=== PATIENT | male | born 1950 | race Caucasian/White ===

== ENCOUNTER → 2018-05-12 | Outpatient (CLI) | payer MEDICARE, OTHER ==
[~2018-05-12] MED LIST: ASPI81EC PO; HYDACE5 PO; IBUP800 PO; OLME20 PO; OMEP20ER PO
[2018-05-12 20:23] LABS: Bacteria Rare /hpf; Mucus Light (0-Heavy); Squamous Epithelial Cells Not Seen /hpf (Few); White Blood Cells, Urine Rare /hpf (0-5)
== END | disposition home or self-care (01) ==
LOC: LAB SHORT 09:45 → LAB EV 09:45
PROVIDERS: Physician Assistant Medical
DX: R30.0 Dysuria (principal)
CPT/HCPCS: 81015

== ENCOUNTER 2020-12-25 08:36 | Observation (INO) | payer MEDICARE, OTHER ==
[~2020-12-25] VITALS: Ht 182.9 cm; Wt 100.0 kg
[2020-12-25] MEDS ORDERED: FARXIGA10 MG PO (09:05)
[2020-12-25] MEDS ORDERED: ELIQUIS5 M2 PO (09:05)
[2020-12-25] MEDS ORDERED: FLONASE ALLERG9.9 M2 NS (09:06)
[2020-12-25] MEDS ORDERED: Norco 10-325 T1 EACH PO (09:06)
[2020-12-25] MEDS ORDERED: ENTRESTO 24 MG1 EACH PO (09:06)
[2020-12-25] MEDS ORDERED: SILD50TA PO (09:08)
[2020-12-25] MEDS ORDERED: ROSU5 PO (09:08)
[2020-12-25] MEDS ORDERED: METO50ER PO (09:08)
[2020-12-25] MEDS ORDERED: SPIR25 PO (09:09)
--- NOTE | 2020-12-25 12:06 | NUR ---
Received telephone report from the heart center at this time.
--- NOTE | 2020-12-25 16:22 | NUR ---
PT appears unhappy after talking with the can closing machine tender about the possiblity of a pacemaker surgery tomorrow. I asked if he had any specific concerns about the surgery, and he said he doesn't have an answer, but that he does have concerns. He states that it "just sucks" and that he is angry at himself. STates he doesn't know what he did to make this happen to his heart. States he doesn't have a choice, it's either or have the pacemaker if it is needed. Heparin gtt was started after verification with Kristin Colindres RN. Infusing via R arm IV.
--- NOTE | 2020-12-25 17:37 | NUR ---
Pt continues to deny any syptomps. Blood pressure noted lower at last check. He is sitting up in bed, eating dinner at this time. Idioventricular rhythm continues, rate averaging 40 bpm.
--- NOTE | 2020-12-25 18:47 | NUR ---
ALERTED that pt's heart rate was in 20s, 31 bpm when I looked at the monitor. Pt is sitting up in bed, denies any symptoms. Blood pressure 90/47 at this time. Pt states that his blood pressure was systolic 80s all summer.
--- NOTE | 2020-12-26 01:22 | NUR ---
[facility] CALLED TO NOTIFY OF CRITICAL PTT >139. CALL PLACED TO PHARMACY. LYUBOV FROM PHARMACY WITH ORDERS TO TURN HEPARIN OFF FOR 1 HOUR. HEPARIN ON STANDBY AT THIS TIME.
[2020-12-26 02:12] LABS: BASOPHILS ABSOLUTE AUTO 0.04 K/mm3 (0.00-0.23); BASOPHILS PERCENT AUTO 1 % (0-2); EOSINOPHILS ABSOLUTE AUTO 0.17 K/mm3 (0.00-0.68); EOSINOPHILS PERCENT AUTO 2 % (0-6); Hematocrit 37.9 % (37.0-53.0); Hemoglobin 12.9 g/dL (13.5-17.5); IMMATURE GRAN ABSOLUTE AUTO 0.02 K/mm3 (0.00-0.10); IMMATURE GRAN PERCENT AUTO 0 % (0-1); LYMPHOCYTES ABSOLUTE AUTO 2.62 K/mm3 (0.84-5.20); LYMPHOCYTES PERCENT AUTO 35 % (21-46); MONOCYTES ABSOLUTE AUTO 0.56 K/mm3 (0.16-1.47); MONOCYTES PERCENT AUTO 8 % (4-13); Mean Corpuscular HGB 32.3 pg (26.0-34.0); Mean Corpuscular Volume 95 fL (80-100); Mean Platelet Volume 10.8 fL (9.1-12.4); NEUTROPHILS ABSOLUTE AUTO 4.09 K/mm3 (1.96-9.15); NEUTROPHILS PERCENT AUTO 55 % (41-73); Platelet Count 158 K/mm3 (150-400); RDW Coefficient Variation 13.8 % (11.7-14.2); RDW Standard Deviation 48.4 fL (35.1-46.3); Red Blood Cell Count 3.99 M/mm3 (4.30-5.90)
[2020-12-26 02:27] LABS: Bun/Creatinine Ratio 17.2 (12.0-20.0); Calcium, Blood 8.5 mg/dL (8.5-10.1); Creatinine, Blood 1.22 mg/dL (0.60-1.20); International Normalized Ratio 1.18; Magnesium, Blood 1.8 mg/dL (1.6-2.4); Potassium, Blood 4.2 mmol/L (3.5-5.5); Prothrombin Time Results 12.3 Sec (9.7-11.5)
--- NOTE | 2020-12-26 05:12 | NUR ---
SHIFT SUMMARY PT A&OX4, PLEASANT BUT DID NOT SLEEP MUCH DURING NIGHT, TIRED. SP02>96% ON RA. TELEMETRY READS JUNCTIONAL/SINUSBRADY DURING SHIFT. HR RANGED 30'S-50'S. HR TOUCHED 29 ONCE AT END OF SHIFT. ZOLL AT BEDSIDE. PT DENIED CP/PRESSURE. DID STATE LIGHTHEADEDNESS AT START OF SHIFT THAT HAS RESOLVED. PT USED URINAL AT BEDSIDE. PT REMAINS NPO SINCE MIDNIGHT FOR AM PROCEDURE. HEPARIN INFUSING PER SHIFT. CRITICAL PTT THIS SHIFT, SEE PREVIOUS NOTE. EKG DONE THIS AM, STRIP IN CHART. CALL LIGHT IN REACH.
== END 2020-12-26 10:44 | disposition home or self-care (01) ==
LOC: MHTC 08:36 → PCU 11:13
PROVIDERS: ADMIT Internal Medicine Cardiovascular Disease
DX: I49.8 Other specified cardiac arrhythmias (principal); R00.1 Bradycardia, unspecified; I48.92 Unspecified atrial flutter; I11.0 Hypertensive heart disease with heart failure; I50.22 Chronic systolic (congestive) heart failure; I51.3 Intracardiac thrombosis, not elsewhere classified; I42.9 Cardiomyopathy, unspecified; I71.2 Thoracic aortic aneurysm, without rupture; E78.5 Hyperlipidemia, unspecified; E66.9 Obesity, unspecified; N52.9 Male erectile dysfunction, unspecified; Z79.01 Long term (current) use of anticoagulants
CPT/HCPCS: 36415; 80048; 83735; 85025; 85610; 85730; 92960; 93005; 93010; 94762; 96374; 96376; 99152; A9270; G0378; J1644; J2250; J3010; J7030

== ENCOUNTER 2024-02-10 10:00 | Day surgery (SDC) | payer MEDICARE, OTHER ==
[~2024-02-10] VITALS: Ht 185.4 cm; Wt 105.1 kg
[~2024-02-10 10:00] MED LIST changes: +ALBU90OI INH; +Balanced Salt Epinephrine Irrigation Solution 500 mL IR SCH; +ELIQUIS5 M2 PO; +ENTRESTO 24 MG1 EACH PO; +FARXIGA10 MG PO; +FLONASE ALLERG9.9 M2 NS; +FURO20 PO; +Lidocaine HCl/Pf 1% 5 ML VIAL XX SCH; +METO50ER PO; +Moxifloxacin HCL 0.5 MG/0.1 ML 0.4MLSYR RIGHTEYE SCH; +Norco 10-325 T1 EACH PO; +PHENYLEPHRINE\\TROPICAMIDE\\TETRACAINE OPHTHALMIC DILATING SOLN RIGHTEYE PRN; +Povidone-Iodine 450 DROP/30 ML Solution ONE; +Povidone-Iodine 450 DROP/30 ML Solution RIGHTEYE SCH; +ROSU5 PO; +SILD50TA PO; +SPIR25 PO; +Tetracaine HCl/Pf 0.5% Opth Soln 4 ml ONE; +Triamcinolone Inj Susp 40 MG / ML 1ML Vial INJ SCH; +Triamcinolone Inj Susp 40 MG / ML 1ML Vial ONE
[2024-02-10] MEDS ORDERED: Diazepam 5 MG Tab ONE (10:15)
[2024-02-10] MEDS ORDERED: Diazepam 2 MG Tab ONE (10:15)
--- NOTE | 2024-02-10 10:27 | NUR ---
02/10/24 1027 Oliva Cummings VALIUM 7MG AT 1022 PER ORDER, PT RATES AXIETY OR 03/20. TETRACAINE AT 1024 PLEDGET AT 1026
[2024-02-10 11:24] VITALS: BP 108/74
[2024-02-10] MEDS ORDERED: FLONASE ALLERG9.9 M2 (12:58)
== END 2024-02-10 11:48 | disposition home or self-care (01) ==
LOC: ORSCSDS 10:00
PROVIDERS: Ophthalmology
PROC: 08RJ3JZ Replacement of Right Lens with Synthetic Substitute, Percutaneous Approach (ICD-10-PCS; principal; 2024-02-10 11:30)
DX: H25.813 Combined forms of age-related cataract, bilateral (principal); I48.0 Paroxysmal atrial fibrillation; I10 Essential (primary) hypertension; J45.909 Unspecified asthma, uncomplicated; K21.9 Gastro-esophageal reflux disease without esophagitis; I50.9 Heart failure, unspecified; Z79.01 Long term (current) use of anticoagulants; Z79.899 Other long term (current) drug therapy
CPT/HCPCS: A9270; J3301; V2632

== ENCOUNTER 2024-02-17 10:00 | Day surgery (SDC) | payer MEDICARE, OTHER ==
[~2024-02-17] VITALS: Ht 185.4 cm; Wt 103.2 kg
[~2024-02-17 10:00] MED LIST changes: +FLONASE ALLERG9.9 M2; +Moxifloxacin HCL 0.5 MG/0.1 ML 0.4MLSYR LEFTEYE SCH; -Moxifloxacin HCL 0.5 MG/0.1 ML 0.4MLSYR RIGHTEYE SCH; +PHENYLEPHRINE\\TROPICAMIDE\\TETRACAINE OPHTHALMIC DILATING SOLN LEFTEYE PRN; -PHENYLEPHRINE\\TROPICAMIDE\\TETRACAINE OPHTHALMIC DILATING SOLN RIGHTEYE PRN; +Povidone-Iodine 450 DROP/30 ML Solution LEFTEYE SCH; -Povidone-Iodine 450 DROP/30 ML Solution RIGHTEYE SCH
[2024-02-17] MEDS ORDERED: Diazepam 5 MG Tab ONE (10:34)
[2024-02-17] MEDS ORDERED: Diazepam 2 MG Tab ONE (10:34)
--- NOTE | 2024-02-17 11:12 | NUR ---
02/17/24 1112 Susan Edmondson PT RATES ANXIETY 03/20 AND TOLERABLE AT THIS TIME.
[2024-02-17 12:11] VITALS: BP 109/76
== END 2024-02-17 12:20 | disposition home or self-care (01) ==
LOC: ORSCSDS 10:00
PROVIDERS: Ophthalmology
PROC: 08RK3JZ Replacement of Left Lens with Synthetic Substitute, Percutaneous Approach (ICD-10-PCS; principal; 2024-02-17 11:30)
DX: H25.812 Combined forms of age-related cataract, left eye (principal); Z96.1 Presence of intraocular lens; I10 Essential (primary) hypertension; Z79.01 Long term (current) use of anticoagulants; Z79.899 Other long term (current) drug therapy
CPT/HCPCS: A9270; J3301; V2632